=== PATIENT | male | born 1965 | race Caucasian/White ===

== ENCOUNTER 2021-03-01 11:40 | Emergency (ER) | payer SELFPAY ==
[2021-03-01] MEDS ORDERED: CLARITIN-D1 TA2 PO (12:02)
[2021-03-01] MEDS ORDERED: ZPAK PO (13:40)
[2021-03-01] MEDS ORDERED: PREDNISONE20 MG PO (13:40)
[2021-03-01 13:45] VITALS: BP 116/67
== END 2021-03-01 13:45 | disposition home or self-care (01) | DRG 203 ==
LOC: ED 11:40
DX: J40 Bronchitis, not specified as acute or chronic (principal); F17.210 Nicotine dependence, cigarettes, uncomplicated; Z20.822 Contact with and (suspected) exposure to COVID-19